=== PATIENT | male | born 1940 | race American Indian/Alaskan Native ===

== ENCOUNTER 2016-12-07 00:05 | Inpatient (IN) | payer OTHER ==
[~2016-12-07] VITALS: Ht 177.8 cm; Wt 106.0 kg
[~2016-12-07 00:05] MED LIST: AMLO10TA2 PO; ASPI-621 PO; CARV-39 PO; CLON0.1T PO; CLOP75TA PO; DOCU-131 PO; ERGO500017 PO; FURO40TA6 PO; HYDR-3343 PO; ISOS30TA8 PO; LISI-170 PO; METO5TAB5 PO; MULT-658 PO; OXYC-302 PO; POLY17PO5 PO; POTA10TA11 PO; POTA20TA14 PO; POTA20TA6 PO; SIMV20TA3 PO; TAMS-11 PO
[2016-12-07] MEDS ORDERED: ACETAMINOPHEN 325 MG TABLET PO ONE (01:30)
[2016-12-07] MEDS ORDERED: HYDROCORTISONE 25 MG SUPP PR ONE (01:30)
[2016-12-07 01:56] LABS: HEMATOCRIT 37.3 % (39.2-51.8); HEMOGLOBIN 12.2 g/dL (13.7-18.0); WHITE BLOOD COUNT 11.6 x10^3/uL (3.4-10)
[2016-12-07 02:00] VITALS: BP 115/54
[2016-12-07 02:08] LABS: ASPARTATE AMINO TRANSFERASE 10 U/L (15-37); BLOOD UREA NITROGEN 43 mg/dL (7-18)
[2016-12-07 02:13] LABS: PATH.CAST-FLAG NOT PRESENT; SPERM-FLAG NOT PRESENT; SRC-FLAG NOT PRESENT; XTAL-FLAG NOT PRESENT; YLC-FLAG NOT PRESENT
[2016-12-07] MEDS ORDERED: CEFOTETAN PMX 1GM/50ML 50 ML ONE (03:27)
[2016-12-07] MEDS ORDERED: CEFOTETAN PMX 1GM/50ML 50 ML IV ONE (03:30)
[2016-12-07] MEDS ORDERED: SODIUM CHLORIDE 0.9% 1,000ML IVBOLUS ONE (03:30)
[2016-12-07] MEDS ORDERED: MORPHINE SULFATE 4 MG/ML, 1ML IVPush PRN (03:30)
[2016-12-07] MEDS ORDERED: MORPHINE SULFATE 4 MG/ML, 1ML ONE (03:34)
[2016-12-07] MEDS ORDERED: DOXA1TAB2 PO (03:46)
[2016-12-07] MEDS ORDERED: FENTANYL PF 100 MCG/2ML ONE ×3 (04:41)
[2016-12-07] MEDS ORDERED: ONDANSETRON 2MG/ML, 2ML ONE (04:50)
[2016-12-07] MEDS ORDERED: PROPOFOL 10 MG/ML, 20ML ONE (04:50)
[2016-12-07] MEDS ORDERED: NEOSTIGMINE 1 MG/ML, 10ML ONE (04:50)
[2016-12-07] MEDS ORDERED: ROCURONIUM 10 MG/ML ONE (04:50)
[2016-12-07] MEDS ORDERED: GLYCOPYRROLATE 0.2MG/1ML, 5ML ONE (04:50)
[2016-12-07] MEDS ORDERED: METOPROLOL 1 MG/ML, 5ML ONE (04:50)
[2016-12-07] MEDS ORDERED: CEFOTETAN 2 GM ONE (04:50)
[2016-12-07] MEDS ORDERED: FENTANYL PF 100 MCG/2ML IV PRN (05:00)
[2016-12-07] MEDS ORDERED: EPHEDRINE 50 MG/ML, 1ML IVPush PRN (05:00)
[2016-12-07] MEDS ORDERED: ALBUTEROL SULFATE 2.5 MG/3 ML NPPB PRN (05:00)
[2016-12-07] MEDS ORDERED: OXYcodone 5 MG/5 ML ORAL.SOL UDC PO PRN (05:00)
[2016-12-07] MEDS ORDERED: ONDANSETRON 2MG/ML, 2ML IVPush PRN ×2 (05:00→07:00)
[2016-12-07] MEDS ORDERED: hydrALAzine 20 MG/ML, 1ML IV PRN (05:00)
[2016-12-07] MEDS ORDERED: ACETAMINOPHEN 325 MG TABLET PO PRN (05:00)
[2016-12-07] MEDS ORDERED: METOPROLOL 1 MG/ML, 5ML IV PRN (05:00)
[2016-12-07] MEDS ORDERED: BUPIVACAINE/PF 0.5% ONE (05:07)
[2016-12-07] MEDS ORDERED: BUPIVACAINE/PF 0.5% INFIL ONE (05:20)
[2016-12-07] MEDS: LABETALOL 5MG/ML, 20ML IV PRN ×3 (06:15→06:32)
[2016-12-07] MEDS ORDERED: HYDROmorphone 1 MG/ML, 1ML ONE (06:16)
[2016-12-07] MEDS: HYDROmorphone 1 MG/ML, 1ML IV PRN ×2 (06:18→06:33)
[2016-12-07] MEDS ORDERED: hydrALAzine 20 MG/ML, 1ML ONE (06:34)
[2016-12-07] MEDS ORDERED: morphine SULFATE 10 MG/ML, 1ML IVPush PRN (07:00)
[2016-12-07 07:55] VITALS: BP 136/74
[2016-12-07] MEDS: D5%-0.45NACL+KCL 20MEQ 1,000 ML IV SCH ×2 (08:14→17:44)
[2016-12-07] MEDS: METRONIDAZOLE PMX 500MG/100ML 100 ML IVPB SCH ×2 (08:14→17:44)
[2016-12-07] MEDS: DOXAZOSIN 1MG TABLET PO SCH (11:56)
[2016-12-07] MEDS: CARVEDILOL 25 MG TABLET PO SCH ×2 (11:56→21:00)
[2016-12-07] MEDS: METOLAZONE 5 MG TABLET PO SCH (11:57)
[2016-12-07] MEDS: FUROSEMIDE 40 MG TABLET PO SCH ×2 (11:57→21:00)
[2016-12-07 14:00] VITALS: BP 115/54
[2016-12-07] MEDS: CEFOTETAN PMX 1GM/50ML 50 ML IVPB SCH (17:10)
[2016-12-07 19:21] VITALS: BP 114/59
[2016-12-07] MEDS: OXYcodone/APAP 7.5/325MG TABLET PO PRN (21:24)
[2016-12-08] MEDS: D5%-0.45NACL+KCL 20MEQ 1,000 ML IV SCH ×2 (00:15→08:59)
[2016-12-08 00:41] VITALS: BP 113/56
[2016-12-08] MEDS: METRONIDAZOLE PMX 500MG/100ML 100 ML IVPB SCH ×3 (01:51→18:07)
[2016-12-08 04:35] VITALS: BP 121/64
[2016-12-08 04:40] LABS: HEMATOCRIT 31.3 % (39.2-51.8); HEMOGLOBIN 10.5 g/dL (13.7-18.0)
[2016-12-08 04:50] LABS: BLOOD UREA NITROGEN 50 mg/dL (7-18)
[2016-12-08] MEDS: CEFOTETAN PMX 1GM/50ML 50 ML IVPB SCH ×2 (05:16→17:20)
[2016-12-08] MEDS: OXYcodone/APAP 7.5/325MG TABLET PO PRN ×2 (05:26→21:08)
[2016-12-08 06:50] VITALS: BP 114/61
[2016-12-08] MEDS: METOLAZONE 5 MG TABLET PO SCH (09:00)
[2016-12-08] MEDS: DOXAZOSIN 1MG TABLET PO SCH (09:00)
[2016-12-08] MEDS: FUROSEMIDE 40 MG TABLET PO SCH ×2 (10:48→21:08)
[2016-12-08] MEDS: CARVEDILOL 25 MG TABLET PO SCH ×2 (10:48→21:08)
[2016-12-08 14:45] VITALS: BP 123/63
[2016-12-08 19:55] VITALS: BP 147/71
[2016-12-09 01:57] VITALS: BP 135/62
[2016-12-09] MEDS: METRONIDAZOLE PMX 500MG/100ML 100 ML IVPB SCH ×3 (02:04→20:53)
[2016-12-09] MEDS: CEFOTETAN PMX 1GM/50ML 50 ML IVPB SCH ×2 (04:56→18:42)
[2016-12-09 05:12] LABS: HEMOGLOBIN 10.8 g/dL (13.7-18.0); WHITE BLOOD COUNT 14.8 x10^3/uL (3.4-10)
[2016-12-09 05:21] LABS: BLOOD UREA NITROGEN 51 mg/dL (7-18)
[2016-12-09 06:55] VITALS: BP 131/71
[2016-12-09] MEDS: DOXAZOSIN 1MG TABLET PO SCH (09:00)
[2016-12-09] MEDS: FUROSEMIDE 40 MG TABLET PO SCH ×2 (09:48→21:05)
[2016-12-09] MEDS: CARVEDILOL 25 MG TABLET PO SCH ×2 (09:48→21:06)
[2016-12-09] MEDS: METOLAZONE 5 MG TABLET PO SCH (09:48)
[2016-12-09 12:50] VITALS: BP 148/67
[2016-12-09] MEDS: OXYcodone/APAP 7.5/325MG TABLET PO PRN ×2 (15:04→21:19)
[2016-12-09 19:20] VITALS: BP 136/73
[2016-12-09] MEDS: D5%-0.45NACL+KCL 20MEQ 1,000 ML IV SCH ×3 (19:30→19:56)
[2016-12-10 02:34] VITALS: BP 145/72
[2016-12-10] MEDS: D5%-0.45NACL+KCL 20MEQ 1,000 ML IV SCH ×2 (02:36→08:04)
[2016-12-10] MEDS: METRONIDAZOLE PMX 500MG/100ML 100 ML IVPB SCH ×3 (03:55→20:25)
[2016-12-10 05:06] LABS: HEMATOCRIT 32.2 % (39.2-51.8); HEMOGLOBIN 10.8 g/dL (13.7-18.0); WHITE BLOOD COUNT 8.4 x10^3/uL (3.4-10)
[2016-12-10] MEDS: CEFOTETAN PMX 1GM/50ML 50 ML IVPB SCH (05:22)
[2016-12-10 06:46] VITALS: BP 159/75
[2016-12-10 08:02] VITALS: BP 163/81
[2016-12-10] MEDS: FUROSEMIDE 40 MG TABLET PO SCH ×2 (08:04→20:25)
[2016-12-10] MEDS: CARVEDILOL 25 MG TABLET PO SCH ×2 (08:04→20:26)
[2016-12-10] MEDS: DOXAZOSIN 1MG TABLET PO SCH (08:04)
[2016-12-10] MEDS: METOLAZONE 5 MG TABLET PO SCH (08:04)
[2016-12-10 13:10] VITALS: BP 141/67
[2016-12-10 16:33] VITALS: BP 157/81
[2016-12-10 20:17] VITALS: BP 156/75
[2016-12-11 03:44] VITALS: BP 125/63
[2016-12-11] MEDS: METRONIDAZOLE PMX 500MG/100ML 100 ML IVPB SCH ×2 (04:12→12:30)
[2016-12-11] MEDS ORDERED: CEFOTETAN PMX 1GM/50ML 50 ML IVPB SCH (05:00)
[2016-12-11 05:39] LABS: HEMATOCRIT 34.5 % (39.2-51.8); HEMOGLOBIN 11.4 g/dL (13.7-18.0); WHITE BLOOD COUNT 7.3 x10^3/uL (3.4-10)
[2016-12-11 06:40] VITALS: BP 153/72
[2016-12-11] MEDS: METOLAZONE 5 MG TABLET PO SCH (08:18)
[2016-12-11] MEDS: FUROSEMIDE 40 MG TABLET PO SCH (08:18)
[2016-12-11] MEDS: CARVEDILOL 25 MG TABLET PO SCH (08:19)
[2016-12-11] MEDS: DOXAZOSIN 1MG TABLET PO SCH (08:19)
[2016-12-11] MEDS ORDERED: PNEUMOCOCCAL 23 VACCINE IM-VACC ONE (13:00)
[2016-12-11] MEDS ORDERED: OXYC-306 PO (13:55)
[2016-12-11] MEDS ORDERED: AMOX1TAB64 PO (13:56)
== END 2016-12-11 14:13 | disposition home or self-care (01) | DRG 338 ==
LOC: ED 00:58 → EDIP 03:21 → 4NOR 07:14 → DCLOUNGE 12-11 13:48
PROVIDERS: ADMIT Surgery; ATTEND Surgery
PROC: 0DTJ0ZZ Resection of Appendix, Open Approach (ICD-10-PCS; principal; 2016-12-07 04:45)
DX: K35.3 Acute appendicitis with localized peritonitis (principal); E43 Unspecified severe protein-calorie malnutrition; I13.0 Hypertensive heart and chronic kidney disease with heart failure and stage 1 through stage 4 chronic kidney disease, or unspecified chronic kidney disease; J44.9 Chronic obstructive pulmonary disease, unspecified; I50.9 Heart failure, unspecified; K80.20 Calculus of gallbladder without cholecystitis without obstruction; N18.9 Chronic kidney disease, unspecified; E66.3 Overweight; Z87.442 Personal history of urinary calculi; Z90.49 Acquired absence of other specified parts of digestive tract; Z68.33 Body mass index [BMI] 33.0-33.9, adult
CPT/HCPCS: 36415; 74176; 80048; 80053; 81001; 83690; 85025; 88304; 96365; 96375; J1170; J2405; J2704; J2710; J3010; J3490; J0360; J3480; J7030; S0074